=== PATIENT | male | born 1995 | race Asian ===

== ENCOUNTER 2016-06-11 18:22 | Emergency (ER) | payer OTHER ==
[2016-06-11] MEDS ORDERED: ACETAMINOPHEN 325 MG TABLET PO STA (18:35)
[2016-06-11] MEDS ORDERED: ACETAMINOPHEN 325 MG TABLET PO ONE (18:35)
== END 2016-06-11 19:38 | disposition home or self-care (01) ==
DX: S01.81XA Laceration without foreign body of other part of head, initial encounter (principal); W20.8XXA Other cause of strike by thrown, projected or falling object, initial encounter; Y92.019 Unspecified place in single-family (private) house as the place of occurrence of the external cause
CPT/HCPCS: 12011; 70450; 99283; A9270